=== PATIENT | male | born 2000 | race Caucasian/White ===

== ENCOUNTER 2023-01-01 09:05 | Emergency (ER) | payer BC, SELFPAY ==
[2023-01-01 09:13] VITALS: BP 154/86; PULSE 64; RESP 17; TEMP 36.6; O2SAT 98; BMI 31.9
--- NOTE | 2023-01-01 09:16 | XR_ITS ---
[address] [address] Patient Name: OC MURILLO MRN: [id number] date: 2000 Sex: M Assigned Patient Location: ED.MAIN Current Patient Location: ED.MAIN Accession/Order Number: [id number] Exam Date: 01/01/2023 09:25 Report Date: 01/01/2023 10:00 At the request of: ANDREA ROBBINS Procedure: XR shoulder LT min 2V Exam: Radiographs: XR cervical spine 2-3V, XR shoulder LT min 2V Reason for exam: fall Comparison: CT scan dated 04/16/2020 XR/XR shoulder LT min 2V IMPRESSION: Unremarkable left shoulder radiograph. Unremarkable cervical spine radiographs. Electronically authenticated by: CAMILLE AMOR Date: 01/01/2023 10:00
--- NOTE | 2023-01-01 09:16 | XR_ITS ---
[address] [address] Patient Name: OC MURILLO MRN: [id number] date: 2000 Sex: M Assigned Patient Location: ED.MAIN Current Patient Location: ED.MAIN Accession/Order Number: [id number] Exam Date: 01/01/2023 09:25 Report Date: 01/01/2023 10:00 At the request of: ANDREA ROBBINS Procedure: XR cervical spine 2-3V Exam: Radiographs: XR cervical spine 2-3V, XR shoulder LT min 2V Reason for exam: fall Comparison: CT scan dated 04/16/2020 XR/XR cervical spine 2-3V IMPRESSION: Unremarkable left shoulder radiograph. Unremarkable cervical spine radiographs. Electronically authenticated by: CAMILLE AMOR Date: 01/01/2023 10:00
--- NOTE | 2023-01-01 09:17 | ED.UPPEXIN1 ---
HPI - Extremity Injury (Upper) General Chief Complaint: Extremity Injury, Upper Stated Complaint: SHOULDER INJURY Time Seen by Provider: 01/01/23 09:07 History of Present Illness HPI narrative: 22-year-old male presents for left neck and shoulder pain. He was playing around with a friend yesterday and he fell and landed on his left shoulder. No rib pain or chest pain or shortness of breath. It hurts more in certain positions. The elbow and wrist do not hurts. He points to the left side of his neck in the whole shoulder to indicate area of most pain. It's moderate and worse with movement. Related Data Home Medications Medication Instructions Recorded Confirmed No Known Home Medications 01/01/23 01/01/23 Allergies Allergy/AdvReac Type Severity Reaction Status Date / Time No Known Drug Allergies Allergy Verified 01/01/23 09:12 Review of Systems ROS Narrative A ten point review of systems is negative except as noted above. PFSH PFSH Social History Smoking status: Never smoker Exam Narrative Exam Narrative: Nurses note and vital signs reviewed and patient is not hypoxic. General: The patient appears well and in no apparent distress. Patient is resting comfortably on cart. Skin: Warm, dry, no pallor noted. There is no rash noted. Head: Normocephalic, atraumatic Eye: Normal conjunctiva, no drainage Ears, Nose, Mouth, and Throat: oral mucosa is moist. Nares patent. Cardiovascular: Regular Rate and Rhythm Respiratory: Patient is in no distress, no accessory muscle use, lungs are clear to auscultation, no wheezing, rales or rhonchi Back: non-tender GI: nontender Musculoskeletal: he has some tenderness on the left side of his neck but not in the posterior cervical spine or thoracic spine. He has no tenderness along the clavicle or the acromioclavicular joint. Range of motion of the shoulder causes discomfort. Left elbow and wrist are nontender and have good range of motion and his radial pulses 2+. Fingers have full range of motion. Neurological: A&O, normal speech Psychiatric: Cooperative Constitutional Vital Signs, click to edit/add: Last Vital Signs Temp 97.9 F 01/01/23 09:13 Pulse 64 01/01/23 09:13 Resp 17 01/01/23 09:13 BP 154/86 H 01/01/23 09:13 Pulse Ox 98 01/01/23 09:13 O2 Del Method Room Air 01/01/23 09:13 Course Vital Signs Vital signs: Vital Signs Temperature 97.9 F 01/01/23 09:13 Pulse Rate 64 01/01/23 09:13 Respiratory Rate 17 01/01/23 09:13 Blood Pressure 154/86 H 01/01/23 09:13 Pulse Oximetry 98 01/01/23 09:13 Oxygen Delivery Method Room Air 01/01/23 09:13 Temperature 97.9 F 01/01/23 09:13 Pulse Rate 64 01/01/23 09:13 Respiratory Rate 17 01/01/23 09:13 Blood Pressure 154/86 H 01/01/23 09:13 Pulse Oximetry 98 01/01/23 09:13 Oxygen Delivery Method Room Air 01/01/23 09:13 MDM - Extremity Injury (Upper) MDM Narrative Medical decision making narrative: X-rays per radiologist showed no acute findings. He was recommended ice and Motrin. Treatment diagnosis and follow-up were discussed with the patient Differential Diagnosis Differential diagnosis: Likely other (shoulder dislocation, shoulder fracture, shoulder contusion) Imaging Data x-ray of C-spine and left shoulder: Radiologist's impression: Procedure: XR cervical spine 2-3V Exam: Radiographs: XR cervical spine 2-3V, XR shoulder LT min 2V Reason for exam: fall Comparison: CT scan dated 04/16/2020 IMPRESSION: Unremarkable left shoulder radiograph. Unremarkable cervical spine radiographs. Electronically authenticated by: CAMILLE AMOR Date: 01/01/2023 10:00 Discharge Plan Discharge Chief Complaint: Extremity Injury, Upper Clinical Impression: Contusion of left shoulder Patient Disposition: Home, Self-Care Time of Disposition Decision: 10:18 Condition: Good Mode of Transportation: Private Vehicle Prescriptions / Home Meds: No Action No Known Home Medications Instructions: Contusion in Adults (ED) Stand Alone Forms: Portal Instructions Referrals: YANG FERRO [Primary Care Provider] - 1 week
== END 2023-01-01 10:28 | disposition home or self-care (01) ==
PROVIDERS: Emergency Provider Emergency Medicine; PCP Family Medicine
DX: S40.012A Contusion of left shoulder, initial encounter (principal); W19.XXXA Unspecified fall, initial encounter
CPT/HCPCS: 72040; 73030; 99284

== ENCOUNTER 2023-02-19 20:13 | Emergency (ER) | payer BC, SELFPAY ==
[2023-02-19 20:20] VITALS: BP 137/80; PULSE 89; RESP 18; TEMP 37.6; O2SAT 98; BMI 32.5
--- NOTE | 2023-02-19 20:27 | XR_ITS ---
The [address] [address] Patient Name: OC MURILLO MRN: [id number] date: 2000 Sex: M Assigned Patient Location: ER Current Patient Location: ED.[facility] Accession/Order Number: [id number] Exam Date: 02/19/2023 20:35 Report Date: 02/19/2023 21:06 At the request of: PASQUALE STALLWORTH Procedure: XR ankle RT min 3V EXAM: XR ankle RT min 3V, XR foot RT min 3V HISTORY: pain COMPARISON: None. TECHNIQUE: 3 views of the right foot, 3 views of the right ankle are performed. FINDINGS: There is extensive anterolateral soft tissue edema at the ankle. No acute fracture is seen. The ankle mortise is preserved. A small ankle effusion is seen. There is a bone island within the calcaneus. XR/XR ankle RT min 3V IMPRESSION: Anterolateral soft tissue swelling at the ankle, with a small ankle effusion. No acute fracture. Electronically authenticated by: SANKET REID Date: 02/19/2023 21:06
--- NOTE | 2023-02-19 20:27 | XR_ITS ---
The [address] [address] Patient Name: OC MURILLO MRN: [id number] date: 2000 Sex: M Assigned Patient Location: ER Current Patient Location: ED.MAIN Accession/Order Number: [id number] Exam Date: 02/19/2023 20:35 Report Date: 02/19/2023 21:06 At the request of: PASQUALE STALLWORTH Procedure: XR foot RT min 3V EXAM: XR ankle RT min 3V, XR foot RT min 3V HISTORY: pain COMPARISON: None. TECHNIQUE: 3 views of the right foot, 3 views of the right ankle are performed. FINDINGS: There is extensive anterolateral soft tissue edema at the ankle. No acute fracture is seen. The ankle mortise is preserved. A small ankle effusion is seen. There is a bone island within the calcaneus. XR/XR foot RT min 3V IMPRESSION: Anterolateral soft tissue swelling at the ankle, with a small ankle effusion. No acute fracture. Electronically authenticated by: SANKET REID Date: 02/19/2023 21:06
--- NOTE | 2023-02-19 20:47 | ED.GENADUL1 ---
HPI - General Adult General Chief complaint: Extremity Injury, Lower Stated complaint: Lower Extremity Injury Time Seen by Provider: 02/19/23 20:18 Source: patient Mode of arrival: walk-in History of Present Illness HPI narrative: 23-year-old male since chief complaint of right ankle pain. Soft tissue swelling is noted. He states he was out hunting and rolled his ankle over a log. Bimalleolar swelling is noted.Denies history of fracture to this extremity in the past. pt states he has difficulty bearing weight. Obvious swelling is noted. Extremity is neurovascularly intact Related Data Previous Rx's Medication Instructions Recorded ibuprofen 800 mg tablet 800 mg PO Q8H PRN pain #20 tabs 02/19/23 Allergies Allergy/AdvReac Type Severity Reaction Status Date / Time No Known Drug Allergies Allergy Verified 02/19/23 20:26 Review of Systems ROS Narrative All Systems are negative except as noted/marked.All systems reviewed and otherwise negative PFSH PFSH Social History Smoking status: Never smoker Exam Narrative Exam Narrative: Nurses note and vital signs reviewed and patient is not hypoxic. General: The patient appears well and in no apparent distress. Patient is resting comfortably on cart. Skin: Warm, dry, no pallor noted. There is no rash noted. Head: Normocephalic, atraumatic Eye: Normal conjunctiva, no drainage, EOMI. PERRL Ears, Nose, Mouth, and Throat: oral mucosa is moist. Nares patent. Mouth without vesicles. Ear canals patent. Tm's without Erythema Musculoskeletal: bimalleolar soft tissue swelling right ankle, neurovascularly intact, good cap refill distallay, remainder of ext within normal limits Psychiatric: Cooperative Constitutional Vital Signs, click to edit/add: Last Vital Signs Temp 99.7 F 02/19/23 20:20 Pulse 89 02/19/23 20:20 Resp 18 02/19/23 20:20 BP 137/80 02/19/23 20:20 Pulse Ox 98 02/19/23 20:20 O2 Del Method Room Air 02/19/23 20:20 Course Vital Signs Vital signs: Vital Signs Temperature 99.7 F 02/19/23 20:20 Pulse Rate 89 02/19/23 20:20 Respiratory Rate 18 02/19/23 20:20 Blood Pressure 137/80 02/19/23 20:20 Pulse Oximetry 98 02/19/23 20:20 Oxygen Delivery Method Room Air 02/19/23 20:20 Temperature 99.7 F 02/19/23 20:20 Pulse Rate 89 02/19/23 20:20 Respiratory Rate 18 02/19/23 20:20 Blood Pressure 137/80 02/19/23 20:20 Pulse Oximetry 98 02/19/23 20:20 Oxygen Delivery Method Room Air 02/19/23 20:20 Medical Decision Making Medical Records Medical records reviewed: Yes I reviewed the patient's medical records Medical records narrative: Presented here after rolling his ankle while out hunting. Soft tissue swelling is noted. Extremities neurovascular intact. José Miguel wrap and walking boot provided. Patient has his own crutches. X-ray looks within normal limits. No acute deformity or fracture noted soft tissue swelling. Patient will follow up Dr. Mattson. Imaging Data ankle: Attestation: I have reviewed the pertinent imaging results. My impression: neg Radiologist's impression: [place] [address] XRay Report Signed Patient: OC MURILLO MR#: [id number] : 2000 Acct:[id number] Age/Sex: 23 / M ADM Date: 02/19/23 Loc: ER Attending Dr: Ordering Physician: Mandi Stallworth Date of Service: 02/19/23 Procedure(s): XR ankle RT min 3V Accession Number(s): [id number] cc: YANG FERRO ; Mandi Stallworth~ The [place] [address] Patient Name: OC MURILLO MRN: [id number] date: 2000 Sex: M Assigned Patient Location: ER Current Patient Location: ED.MAIN Accession/Order Number: [id number] Exam Date: 02/19/2023 20:35 Report Date: 02/19/2023 21:06 At the request of: MANDI STALLWORTH Procedure: XR ankle RT min 3V EXAM: XR ankle RT min 3V, XR foot RT min 3V HISTORY: pain COMPARISON: None. TECHNIQUE: 3 views of the right foot, 3 views of the right ankle are performed. FINDINGS: There is extensive anterolateral soft tissue edema at the ankle. No acute fracture is seen. The ankle mortise is preserved. A small ankle effusion is seen. There is a bone island within the calcaneus. XR/XR ankle RT min 3V IMPRESSION: Anterolateral soft tissue swelling at the ankle, with a small ankle effusion. No acute fracture. Electronically authenticated by: SANKET REID Date: 02/19/2023 21:06 Discharge Plan Discharge Chief Complaint: Extremity Injury, Lower Clinical Impression: Ankle sprain and strain Patient Disposition: Home, Self-Care Time of Disposition Decision: 21:00 Condition: Good Prescriptions / Home Meds: New ibuprofen 800 mg tablet 800 mg PO Q8H PRN (Reason: pain) Qty: 20 0RF Instructions: Crutch Instructions (ED), P.R.I.C.E. Treatment (ED), Ankle Strain (ED) Stand Alone Forms: Portal Instructions Referrals: YANG FERRO [Primary Care Provider] - 1 week Neftali Mattson MD [Physician] - 1 week
[2023-02-19] MEDS: IBUPROFEN 400 MG TABLET 800 MG PO (21:16)
== END 2023-02-19 21:28 | disposition home or self-care (01) ==
PROVIDERS: Emergency Provider Emergency Medicine; PCP Family Medicine
DX: S93.401A Sprain of unspecified ligament of right ankle, initial encounter (principal); S96.911A Strain of unspecified muscle and tendon at ankle and foot level, right foot, initial encounter; X50.1XXA Overexertion from prolonged static or awkward postures, initial encounter
CPT/HCPCS: 73610; 73630; 99284

== ENCOUNTER 2023-03-10 08:06 | Outpatient (OUT) | payer BC, SELFPAY ==
--- NOTE | 2023-03-10 08:12 | XR_ITS ---
The [address] [address] Patient Name: OC MURILLO MRN: [id number] date: 2000 Sex: M Assigned Patient Location: RAD Current Patient Location: RAD Accession/Order Number: [id number] Exam Date: 03/10/2023 08:13 Report Date: 03/10/2023 21:09 At the request of: HÉCTOR HERRERA Procedure: XR ankle RT min 3V EXAM: XR ankle RT min 3V HISTORY: Sprain Of Right Ankle S93.401A COMPARISON: None. FINDINGS: 3 radiographs of the right ankle were obtained. No acute fracture or dislocation. Ankle mortise is symmetric. Talar dome is normal. Small ankle joint effusion. Soft tissue swelling over the lateral ankle. 1.5 cm sclerotic density along the lateral margin of the distal tibia, likely representing an ossified cortical defect. 5 mm sclerotic density in the calcaneus, consistent with a bone island. XR/XR ankle RT min 3V IMPRESSION: No acute fracture or dislocation. Electronically authenticated by: MARK WILSON Date: 03/10/2023 21:09
== END 2023-03-10 08:07 | disposition home or self-care (01) ==
LOC: RAD 08:06
PROVIDERS: PCP Family Medicine; Visit Provider Orthopaedic Surgery
DX: S93.401A Sprain of unspecified ligament of right ankle, initial encounter (principal)
CPT/HCPCS: 73610

== ENCOUNTER 2023-10-18 17:15 | Emergency (ER) | payer OTHER, SELFPAY ==
--- OUTSIDE RECORDS SUMMARY | 2023-10-18 17:21 | XMS_ITS | CCD ---
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 coding, format and clinical context of patient data. In addition, data may be omitted in some cases. CLINICAL DECISIONS SHOULD BE BASED ON THE PRIMARY CLINICAL RECORDS. [facility] [employer] [facility]. provides no warranty or guarantee of the accuracy or completeness of information in this document.
[2023-10-18 17:22] VITALS: BP 128/76; PULSE 77; TEMP 36.6; O2SAT 98; BMI 29.9
[2023-10-18] MEDS: ADACEL DIPH,PERTUSS(ACELL),TET VAC/PF 0.5 ML ADULT SYRINGE IM (18:00)
[2023-10-18] MEDS: LIDOCAINE HCL 1% 100 MG/10 ML MDV INJ (18:02)
--- NOTE | 2023-10-19 07:23 | ED.WOUNDLAC1 ---
HPI - Wound/Laceration General Chief Complaint: Wound/Laceration Stated Complaint: laceration to upper extremity Time Seen by Provider: 10/18/23 17:37 Source: patient Mode of arrival: walk-in Limitations: no limitations History of Present Illness HPI narrative: The patient is coming to the ER after with a laceration to the left hand while he was opening up some oyster, he mentioned that it was sea oyster He also mentioned that he had his last tetanus more than 5 years ago Related Data Previous Rx's ?Medication ?Instructions ?Recorded ibuprofen 800 mg tablet 800 mg PO Q8H PRN pain #20 tabs 02/19/23 levofloxacin 750 mg tablet 750 mg PO DAILY 7 days #7 tabs 10/18/23 Allergies Allergy/AdvReac Type Severity Reaction Status Date / Time No Known Drug Allergies Allergy Verified 02/19/23 20:26 Review of Systems ROS Status of ROS 10 or more systems reviewed and unremarkable except as noted in history and below PFSH PFSH Social History Smoking status: Never smoker Exam Narrative Exam Narrative: Nurses notes and vital signs reviewed and patient is not hypoxic. General: Well-appearing and in no apparent distress. Skin: Warm, dry, no pallor noted. No rash. Head: Normocephalic, atraumatic. Neck: Supple, non-tender. Eye: Pupils are equal, round and EOMI. No scleral icterus. Ears, Nose, Mouth, and Throat: TM are clear, no nasal mucosal hypertrophy. Oral mucosa is moist, no posterior oropharynx erythema, uvula is mid-line Cardiovascular: Regular Rate and Rhythm without murmur, gallop or rub. Respiratory: No accessory muscle use or respiratory distress. Lungs are clear to auscultation, no wheezing, rales or rhonchi Chest Wall: no tenderness Back: No midline thoracic or lumbar vertebral tenderness. No CVA tenderness Musculoskeletal: normal ROM, no calf or popliteal tenderness, no lower extremity edema/swelling Examination of the left hand showed that the patient have full range of movement of the fingers just between the thumb been the index finger on the left hand the patient have a laceration that is transverse almost 2.5 cm deep with no exposure with underlying structures no tendon involvement and the patient have no function of the thumb as well as the rest of the fingers No vascular injury detected GI: Abdomen is soft, non-distended. Normal bowel sounds. No masses appreciated. No tenderness to palpation. No rebound, guarding, or rigidity noted. Neurological: A&O x4. No cranial nerve dysfunction observed. No truncal ataxia. Moves all extremities. Sensation intact. Psychiatric: Cooperative and interactive. Normal mood and affect. Constitutional Vital Signs, click to edit/add: Last Vital Signs Temp 97.8 F 10/18/23 17:22 Pulse 77 10/18/23 17:22 Resp 18 10/18/23 17:22 BP 128/76 10/18/23 17:22 Pulse Ox 98 10/18/23 17:22 O2 Del Method Room Air 10/18/23 17:22 Course Vital Signs Vital signs: Vital Signs Temperature 97.8 F 10/18/23 17:22 Pulse Rate 77 10/18/23 17:22 Respiratory Rate 18 10/18/23 17:22 Blood Pressure 128/76 10/18/23 17:22 Pulse Oximetry 98 10/18/23 17:22 Oxygen Delivery Method Room Air 10/18/23 17:22 Temperature 97.8 F 10/18/23 17:22 Pulse Rate 77 10/18/23 17:22 Respiratory Rate 18 10/18/23 17:22 Blood Pressure 128/76 10/18/23 17:22 Pulse Oximetry 98 10/18/23 17:22 Oxygen Delivery Method Room Air 10/18/23 17:22 MDM - Wound/Laceration MDM Narrative Medical decision making narrative: After cleaning the area thoroughly with normal saline and Betadine and the patient had the area infiltrated with almost 3 cc of 1% lidocaine Then applying 4-o Chromic Gut sutures inside the wound and applying almost 7 stitches of 3-0 nylon The patient will keep the wound clean and dry with instruction of wound care and suture removal given to the patient He was covered with levofloxacin to avoid any Pseudomonas infection The patient is to follow up with primary care physician in next 2-3 days or to return to the emergency department should any of the signs or symptoms worsen or new symptoms develop. The patient agrees with the following Diagnosis and Treatment plan and the patient will be discharged home. Discharge Plan Discharge Stand Alone Forms: Portal Instructions Chief Complaint: Wound/Laceration Clinical Impression: Laceration Patient Disposition: Home, Self-Care Time of Disposition Decision: 18:23 Condition: Good Prescriptions / Home Meds: New levofloxacin 750 mg tablet 750 mg PO DAILY 7 Days Qty: 7 0RF No Action ibuprofen 800 mg tablet 800 mg PO Q8H PRN (Reason: pain) Qty: 20 0RF Print Language: Pashto Instructions: Laceration (DC) Referrals: YANG FERRO [Primary Care Provider] - 1 week Discharge Date/Time: 10/18/23 18:39
== END 2023-10-18 18:39 | disposition home or self-care (01) ==
PROVIDERS: Emergency Provider Emergency Medicine; PCP Family Medicine
DX: S61.412A Laceration without foreign body of left hand, initial encounter (principal); Z23 Encounter for immunization; W45.8XXA Other foreign body or object entering through skin, initial encounter
CPT/HCPCS: 12001; 90471; 90715; 99284

== ENCOUNTER 2024-03-16 16:26 | Outpatient (OUT) | payer OTHER, SELFPAY ==
--- NOTE | 2024-03-16 16:31 | XR_ITS ---
[address] [address] Patient Name: OC MURILLO MRN: [id number] date: 2000 Sex: M Assigned Patient Location: [facility] Current Patient Location: Accession/Order Number: [id number] Exam Date: 03/16/2024 16:35 Report Date: 03/18/2024 05:48 At the request of: YANG FERRO Procedure: XR shoulder RT min 2V PROCEDURE: XR shoulder RT min 2V HISTORY: right shoulder pain s/p fall COMPARISON: None. FINDINGS: BONES:No fracture, acute abnormality, or significant arthropathy. SOFT TISSUES:No visible soft tissue swelling. EFFUSION:None visible. OTHER: Negative. XR/XR shoulder RT min 2V IMPRESSION: 1. No acute bone abnormality. Electronically authenticated by: HÉCTOR HERNANDEZ Date: 03/18/2024 05:48
== END 2024-03-16 16:27 | disposition home or self-care (01) ==
LOC: RAD 16:27
PROVIDERS: PCP Family Medicine; Visit Provider Family Medicine
DX: M25.511 Pain in right shoulder (principal); S43.101A Unspecified dislocation of right acromioclavicular joint, initial encounter
CPT/HCPCS: 73030